=== PATIENT | female | born 1995 | race Caucasian/White ===

== ENCOUNTER 2022-11-25 16:11 | Inpatient (IN) | payer MEDICAID, SELFPAY ==
[2022-11-25] VITALS (51 sets, daily range): BP systolic 87–134; BP diastolic 51–87; PULSE 68–110; RESP 16; TEMP 36.6–37.1; O2SAT 83–100; BMI 33.6
[2022-11-25] MEDS: LACTATED RINGERS 1000 ML 1,000 ML 1200 ML IV ×2 (17:18→18:10)
[2022-11-25] MEDS: ROPIVACAINE 0.2% 100 ml 100 ML 12 MG EPIDURAL (18:04)
--- NOTE | 2022-11-25 18:10 | PM.ANBPRC ---
PFSH PFSH Social History Smoking Status: Former smoker Meds Home Medications and Allergies Home Medications Medication Instructions Recorded Confirmed Type prenat.vits,layla,lmd-sspd-ilulx 1 tab PO DAILY 11/25/22 11/25/22 History Allergies Allergy/AdvReac Type Severity Reaction Status Date / Time No Known Drug Allergies Allergy Verified 11/25/22 15:24 Results Vital Signs Vital Signs: Last Vital Signs Temp 98.8 F 11/25/22 15:34 Pulse 93 11/25/22 18:08 Resp 16 11/25/22 15:34 BP 131/75 11/25/22 18:08 Pulse Ox 100 11/25/22 18:05 Weight: 91.626 kg Height: 165.1 cm Anesthesia Procedures Epidural Insertion Patient Location: OB Start Time: 17:45 Stop Time: 18:30 Start Date: 11/25/22 Stop Date: 11/25/22 Reason for Block: procedure for pain Patient Position: sitting Performed By: Otis Rodriguez Preanesthetic Checklist: IV checked, risks and benefits discussed, surgical consent, monitors and equipment checked, pre-op evaluation, timeout performed and anesthesia consent Prep: chlorhexidine gluconate Monitoring: blood pressure monitoring, continuous pulse oximetry and heart rate Approach: midline Vertebral Space: lumbar (1-5) Epidural Technique: OSMAN saline Needle Type: Tuohy needle Injection Technique: continuous catheter Needle gauge: 17 Needle Length (cm): 10 cm Needle Insertion Depth (cm): 6 Catheter Gauge: 19 Catheter Type: multi-orifice Catheter at skin depth (cm): 12 Test Dose Result: negative and lidocaine 1.5% with epinephrine 1 to 200,000
[2022-11-25 18:21] LABS: SARS PCR* Negative SARS-CoV-2 (Negative)
--- NOTE | 2022-11-25 18:22 | P.OBHP_ITS ---
OB - H&P: HPI Labor/Induction History of Present Illness Time Seen by Provider: 18:22 Date Seen: 11/25/22 Chief Complaint: The patient is a 27 year old 2 para 1 at 40w0d weeks gestation by 8 week ultrasound (periods were irregular and LMP was off by 6 days), who presents with SROM and spontaneous labor. Patient was evaluated in clinic today, we swept membranes and patient was 2 cm, 50, -2. Presented with gross rupture of membranes and was 3 cm. Admitted for Labor Chief complaint: Maternity : 2 Para: 1 Narrative: The patient is a 27 year old 2 para 1 at 40w0d weeks gestation by 8 week ultrasound (periods were irregular and LMP was off by 6 days), who presents with SROM and spontaneous labor. Patient was evaluated in clinic today, we swept membranes and patient was 2 cm, 50, -2. Presented with gross rupture of membranes and was 3 cm. Admitted for Labor. Comments: Had echogenic bowel on ultrasound, was not present on level 2 ultrasound. History of Present Dating criteria: based on 1st trimester US only (6 days off of LMP) care: good care Ultrasounds: normal mid trimester US and abnormal US findings Abnormal ultrasound findings: echogenic bowel. Medical complications: none Labs Blood type: A (-) negative Rubella: immune RPR/VDLR: nonreactive GBS status: negative HBsAG: negative Review of Systems Status of ROS: Reports: 10 or more systems reviewed and unremarkable except as noted in History and below Meds Home Medications and Allergies Home Medications Medication Instructions Recorded Confirmed Type prenat.vits,layla,jaa-xybp-njqyc 1 tab PO DAILY 11/25/22 11/25/22 History Allergies Allergy/AdvReac Type Severity Reaction Status Date / Time No Known Drug Allergies Allergy Verified 11/25/22 15:24 OB - H&P: Exam Physical Exam: Vital signs: Temp Pulse Resp BP Pulse Ox 98.8 F 68 16 95/54 L 100 11/25/22 15:34 11/25/22 18:20 11/25/22 15:34 11/25/22 18:20 11/25/22 18:10 Constitutional: Constitutional: no acute distress Routine HEENT Exam: Head: Present atraumatic, normal inspection and normocephalic Routine Neck Exam: Neck: Present full ROM Detailed Neck Exam: Thyroids: Thyroid: Present normal Routine Respiratory Exam: Respiratory: Present CTA bilaterally; Absent crackles or rales Routine Cardiovascular Exam: Cardiovascular: RRR, S1 and S2 Detailed Labor and Delivery Exam: Patient Gravid: Yes Dilation (cm): 6 Effacement (%): 90 Cervix position: anterior Consistency: soft Tachysystole: No Contraction intensity: Strong/Firm Fetus (Single): Station: 0 Amniotic Membrane Status: SROM Amniotic Membrane Fluid Description: Clear Heart Rate Baseline: 120 Monitor Accelerations: Absent Monitor Decelerations: None 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
[2022-11-25] MEDS: PHENYLEPHRINE 100 MCG/ML SYRINGE IVP (18:23)
[2022-11-25] MEDS: ePHEDrine sulfate 5 MG/ML inj 10 MG IVP (18:27)
[2022-11-25] MEDS: OXYTOCIN 30 unit/500 ML in NS 30 UNIT/500 ML BAG 300 UNIT IVPB (20:45)
--- NOTE | 2022-11-25 21:10 | W.PM.OBVAGDE ---
OB Procedure Vag Delivery Mother Details Mother Details: The patient is a 27 year-old, 2, Para 1, admitted on 11/25/22 at 40 w 0 Days gestation. : 2 Para: 1 Weeks Gestation: 40 Admission Date: 11/25/22 Additional Details Amniotic Membrane Status: SROM Amniotic Membrane Rupture Date: 11/25/22 Amniotic Membrane Rupture Time: 14:30 Amniotic Membrane Fluid Description: Clear Analgesia/Anesthesia Type: Epidural Waterbirth: No Pitcoin: No Intrapartal Events: Distress (after epidural, resolved with treating maternal blood pressures) Labor Onset: 18:30 Complete: 20:33 Pushin:35 Heart: heart tones during second stage were category 1 Delivery Details Delivery Date: 11/25/22 Delivery Time: 20:45 Route of delivery: Gender: Male Infant Viability: Alive; Heart Rate Present Position at Delivery: OA Delivery Details: Delivered over intact perineum via spontaneous vaginal delivery. Infant was placed on maternal abdomen.? Cord was clamped and cut after a 30-60 second delay. Nose and mouth were bulb suctioned.? Infant weight pending. 1 Minute Interval Total Score: 9 5 Minute Interval Total Score: 9 Additional Details Shoulder Dystocia: No Placenta Delivery Time: 20:51 Placental Delivery Description: Spontaneous Blood Loss: 75 Laceration: None Blood Loss Measurement Type: QBL Sponge/Need Count Correct: Yes Cord Vessel Description: 3 Vessels Event Summary Status: Mother and infant were stable after delivery. Disposition: no change
[2022-11-26 03:30] VITALS: BP 125/71; PULSE 74; RESP 16; TEMP 36.7; O2SAT 97
--- NOTE | 2022-11-26 06:30 | PM.OBPNVD1 ---
OB - PN:Subj Subjective Time Seen by Provider: 06:30 Date Seen: 11/26/22 Patient comments OB post-: no complaints status: feeding status: exclusively OB - PN: Obj Exam Physical Exam: Vital signs: Temp Pulse Resp BP Pulse Ox O2 Del Method 98.1 F 74 16 125/71 97 Room Air 11/26/22 03:30 11/26/22 03:30 11/26/22 03:30 11/26/22 03:30 11/26/22 03:30 11/26/22 03:30 Constitutional: Constitutional: no acute distress and average body habitus Routine HEENT Exam: Head: Present atraumatic and normal inspection Routine Respiratory Exam: Respiratory: Present CTA bilaterally; Absent crackles or rales Routine Cardiovascular Exam: Cardiovascular: Present RRR, S1 and S2 Routine Abdominal Exam: Fundus: Present firm Routine Exam: Patient deferred: external exam Routine Psychiatric Exam: Psychiatric: Present normal affect OB - PN: Obj Data Labs Labs: Laboratory Results - last 24 hr 11/25/22 17:16 SARS-CoV-2 (PCR) Negative SARS-CoV-2 OB - PN: A/P Vaginal Delivery Assessment and Plan (1) Term : Status: Acute (2) (normal spontaneous vaginal delivery): Status: Acute Assessment and Plan: - doing well, pain controlled. Bleeding appropriate Plan - ongoing routine cares Plan day: 1 Plan: routine care
[2022-11-26 07:05] LABS: Hemoglobin* 11.5 gm/dL (12.0-16.0)
[2022-11-26 08:29] VITALS: BP 121/80; PULSE 67; RESP 16; TEMP 36.8; O2SAT 98
[2022-11-26] MEDS: DOCUSATE SODIUM 100 MG CAPSULE PO (10:06)
[2022-11-26 12:04] VITALS: BP 111/72; PULSE 88; TEMP 36.6; O2SAT 97
[2022-11-26 16:01] VITALS: BP 120/77; PULSE 72; RESP 16; TEMP 36.5; O2SAT 98
[2022-11-26 20:37] VITALS: BP 109/73; PULSE 72; RESP 16; TEMP 36.7; O2SAT 98
[2022-11-27 04:30] VITALS: BP 109/71; PULSE 63; RESP 16; TEMP 36.7; O2SAT 97
[2022-11-27 08:30] VITALS: BP 137/81; PULSE 66; RESP 16; TEMP 36.5; O2SAT 99
--- NOTE | 2022-11-27 10:25 | P.DS_ITS ---
DS: Providers Provider Time Seen by Provider: 10:25 Date Seen: 11/27/22 Date of admission: 11/25/22 16:11 Primary care physician: Roma Carcamo MD Admitting Clinician: Roma Carcamo MD Attending Physician on discharge: Roma Carcamo MD Date of Discharge: 11/27/22 DS: Diagnosis Discharge Diagnosis (1) (normal spontaneous vaginal delivery): Status: Acute (2) Term : Status: Acute Exam Narrative: Exam Narrative: General appearance: Well-appearing adult female. Alert, oriented and appropriate. Sitting up in hospital bed. HEENT: EOMI, no conjunctival injection or discharge. MMM. Neck: Supple. CV: RRR, no rubs, murmurs or extra heart sounds. Pulm: CTAB, no wheezes, rales or rhonchi. Abdomen: Soft, non-tender. Fudus palpated 1 cm below the umbilicus. MSK: Moving all extremities. Ext: Warm and well-perfused. No LE edema. Skin: No rashes appreciated over exposed skin. Neuro: Grossly normal strength and sensation. No focal deficits. Psych: Normal affect. Const: Vital Signs, click to edit/add: Vital Signs - 24 hr 11/26/22 12:04 11/26/22 16:01 11/26/22 20:37 Temperature 97.8 F 97.7 F 98.1 F Pulse Rate Pulse Rate [Left P ulse Oximeter] 88 72 72 Respiratory Rate 16 16 Blood Pressure Blood Pressure [Le ft Arm] 111/72 120/77 109/73 Pulse Oximetry 97 98 98 Oxygen Delivery Me thod Room Air Room Air Room Air 11/27/22 04:30 11/27/22 04:30 11/27/22 08:30 Temperature 98.1 F 97.7 F Pulse Rate 63 Pulse Rate [Left P ulse Oximeter] 66 Respiratory Rate 16 16 16 Blood Pressure 109/71 Blood Pressure [Le ft Arm] 137/81 Pulse Oximetry 97 99 Oxygen Delivery Me thod Room Air OB - DS: Summary Hospital Course Hospital Course: The patient is a 27 year old G 2 P 1 at 40+0 weeks gestation that was admitted to the Center on 11/25/22 for SROM. complicated by Rh negative status. Baby's blood type is A neg, so did not receive rhogam. She had an uncomplicated vagnial delivery. She delivered a viable male . She is pumping and bottle feeding. the patient has done well. Peripartum Data delivery method: Vaginal Laceration description: None complications: none [place] Gender: Male Discharge Plan: Home Status at Discharge Functional status at discharge: independent ambulation Time Spent with Patient Time attestation: Total time spent providing and/or coordinating discharge services: Time spent: Less than 30 minutes Discharge Plan Discharge Disposition: Home, Self-Care Date of Admission: 11/25/22 16:11 Attending Provider on Discharge: Berenice Finch Primary Care Provider: Roma Carcamo Condition: Stable Anticipated Discharge Date/Time: 11/27/22 10:17 Discharge Medications: New acetaminophen 500 mg Tablet 1,000 mg PO Q6H PRN (Reason: pain/fever) 30 Days Qty: 30 0RF docusate sodium 100 mg Capsule 100 mg PO DAILY 30 Days Qty: 30 0RF ibuprofen 600 mg Tablet 600 mg PO Q6H PRN30 Days Qty: 30 0RF Continued prenat.vits,layla,[id number]-wcfue Tablet 1 tab PO DAILY Discharge Orders: Discharge Order (Routine); Ordered 11/27/22 Ordered By: Berenice Finch Patient Education: OB Vaginal/Breast Feeding Activity Level: Activity as Tolerated Discharge Diet: Regular Follow Up Appointments: Roma Carcamo MD [Primary Care Provider] - (6 week post- visit) Forms: [facility] Info Instructions
== END 2022-11-27 11:10 | disposition home or self-care (01) | DRG 807 ==
LOC: OB OUT 16:15 → OB 16:15
PROVIDERS: Admitting Provider Family Medicine; PCP Family Medicine; Visit Provider Family Medicine
DX: O80 Encounter for full-term uncomplicated delivery (principal); Z37.0 Single live birth; Z3A.40 40 weeks gestation of pregnancy
CPT/HCPCS: 01967; 36415; 85018; 87635; A9270; J2370; J2795; J7120; S0020